=== PATIENT | female | born 1970 | race Caucasian/White ===

== ENCOUNTER 2016-12-08 02:16 | Emergency (ER) | payer MEDICARE, BC ==
[~2016-12-08] VITALS: Ht 165.1 cm; Wt 49.0 kg
[2016-12-08 02:19] VITALS: BP 124/76; PULSE 67; RESP 20; TEMP 98.3; O2SAT 100
[2016-12-08] MEDS ORDERED: FLUD.1 PO (02:35)
[2016-12-08] MEDS ORDERED: METO25TA3 PO (02:35)
[2016-12-08] MEDS ORDERED: ADDE20 PO (02:35)
[2016-12-08] MEDS ORDERED: SODIUM CHLOR 0.9% 1000 ML INJ 1,000 ML IV ONE (02:36)
--- NOTE | 2016-12-08 02:40 | PD ---
HPI Chief Complaint: syncope Time Seen by Provider: 02:19 Travel History International Travel<30 days: No Contact w/Intl Traveler<30days: No Traveled to known affect area: No History of Present Illness HPI The patient is a 46-year-old female who presents emergency Department after syncopal episode. The patient is currently staying at the [facility]. The patient states she was using the restroom earlier tonight when she had a syncopal episode. The patient states she struck the right aspect of her head on the ground, thinks she may have had a loss of consciousness. She currently complains of a headache. The patient does have a significant history of dysautonomia, had a positive tilt table test and was placed on midodrine, however, had a reaction and was changed to Florinef. The patient also had episodes of bradycardia and tachycardia, subsequently had a pacemaker placed, by a traumatic, and was placed on metoprolol. 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 The patient denies any palpitations or known arrhythmia earlier tonight, however, does complain of sharp left-sided chest pain. The patient denies any acute shortness of breath, nausea, vomiting, or diaphoresis. She does admit to drinking one alcoholic drink earlier tonight, denies intoxication. She denies any company neck pain, back pain, or extremity pain. PFSH Past Medical History Narrative Medical Dysautonomia Past Surgical History Narrative Surgical Pacemaker placement Social History Alcohol Use: Yes Tobacco Use: Yes Allergies-Medications (Allergen,Severity, Reaction): Coded Allergies: Niacin (Verified Allergy, Severe, Hives, 12/08/16) Midodrine (Verified Adverse Reaction, Unknown, 12/08/16) BUSINESS INSURANCE AGENT ADVISED NOT TO TAKE Reported Meds & Prescriptions Reported Meds & Active Scripts Active Reported Metoprolol Tartrate 25 Mg Tab 25 Mg PO DAILY Fludrocortisone (Fludrocortisone Acetate) 0.1 Mg Tab 0.1 Mg PO DAILY Adderall (Amphetamine-Dextroamphetamine) 20 Mg Tab 20 Mg PO DAILY Avoid late evening doses. Space doses at least 4 to 6 hours if more than once/day dosing. Review of Systems Except as stated in HPI: all other systems reviewed are Neg General / Constitutional: No: Fever HENT: No: Lightheadedness Cardiovascular: Positive: Tachycardia (history of tachycardia, recently had a Holter monitor), Syncope, No: Chest Pain or Discomfort, Irregular Rhythm Respiratory: No: Shortness of Breath Gastrointestinal: No: Nausea, Vomiting, Abdominal Pain Musculoskeletal: No: Weakness Neurologic: Positive: Syncope, No: Dizziness Physical Exam Narrative GENERAL: Awake, alert, pleasant 46-year-old female who appears her stated age and is in no acute respiratory distress. SKIN: Focused skin assessment warm/dry. HEAD: Ecchymosis noted over the right periorbital area and over the right maxilla. EYES: Pupils equal and round. 3 mm bilateral and reactive. EOMs are intact. ENT: No nasal bleeding or discharge. Mucous membranes pink and moist. NECK: Trachea midline. No JVD. No tenderness of the cervical vertebrae. CARDIOVASCULAR: Regular rate and rhythm. No murmur appreciated. Pacemaker in place left chest wall. RESPIRATORY: No accessory muscle use. Clear to auscultation. Breath sounds equal bilaterally. GASTROINTESTINAL: Abdomen soft, non-tender, nondistended. No rebound tenderness. Back: Mild scoliosis, no tenderness over the thoracic or lumbar vertebrae. MUSCULOSKELETAL: No obvious deformities. No clubbing. No cyanosis. No edema. NEUROLOGICAL: Awake and alert. No obvious cranial nerve deficits. Motor grossly within normal limits. Normal speech. Alert and oriented 4. Follows commands without difficulty. PSYCHIATRIC: Appropriate mood and affect; insight and judgment normal. Data Data Last Documented VS Vital Signs Date Time Temp Pulse Resp B/P Pulse Ox O2 Delivery O2 Flow Rate FiO2 12/08/16 03:24 69 17 129/76 68 17 131/77 72 17 120/80 12/08/16 02:19 98.3 100 Orders Electrocardiogram (12/08/16 02:36) Complete Blood Count With Diff (12/08/16 02:36) Comprehensive Metabolic Panel (12/08/16 02:36) Magnesium (Mg) (12/08/16 02:36) Ckmb (Isoenzyme) Profile (12/08/16 02:36) Troponin I (12/08/16 02:36) Chest, Single Ap (12/08/16 02:36) Ct Brain W/O Iv Contrast(Rout) (12/08/16 02:36) Ecg Monitoring (12/08/16 02:36) Iv Access Insert/Monitor (12/08/16 02:36) Oximetry (12/08/16 02:36) Sodium Chloride 0.9% Flush (Ns Flush) (12/08/16 02:45) Sodium Chlor 0.9% 1000 Ml Inj (Ns 1000 M (12/08/16 02:36) Orthostatic Vital Signs (12/08/16 02:36) Alcohol (Ethanol) (12/08/16 02:35) CKMB (12/08/16 02:35) CKMB% (12/08/16 02:35) Potassium Chloride (Kcl) (12/08/16 04:00) Labs Laboratory Tests Test 12/08/16 02:35 White Blood Count 6.3 TH/MM3 Red Blood Count 4.46 MIL/MM3 Hemoglobin 13.2 GM/DL Hematocrit 39.0 % Mean Corpuscular Volume 87.4 FL Mean Corpuscular Hemoglobin 29.6 PG Mean Corpuscular Hemoglobin 33.9 % Concent Red Cell Distribution Width 14.6 % Platelet Count 211 TH/MM3 Mean Platelet Volume 8.6 FL Neutrophils (%) (Auto) 69.6 % Lymphocytes (%) (Auto) 24.2 % Monocytes (%) (Auto) 5.1 % Eosinophils (%) (Auto) 0.7 % Basophils (%) (Auto) 0.4 % Neutrophils # (Auto) 4.4 TH/MM3 Lymphocytes # (Auto) 1.5 TH/MM3 Monocytes # (Auto) 0.3 TH/MM3 Eosinophils # (Auto) 0.0 TH/MM3 Basophils # (Auto) 0.0 TH/MM3 CBC Comment DIFF FINAL Differential Comment Sodium Level 145 MEQ/L Potassium Level 3.3 MEQ/L Chloride Level 105 MEQ/L Carbon Dioxide Level 32.6 MEQ/L Anion Gap 7 MEQ/L Blood Urea Nitrogen 15 MG/DL Creatinine 0.94 MG/DL Estimat Glomerular Filtration 64 ML/MIN Rate Random Glucose 93 MG/DL Calcium Level 9.0 MG/DL Magnesium Level 1.9 MG/DL Total Bilirubin 0.1 MG/DL Aspartate Amino Transf 20 U/L (AST/SGOT) Alanine Aminotransferase 21 U/L (ALT/SGPT) Alkaline Phosphatase 86 U/L Total Creatine Kinase 145 U/L Creatine Kinase MB 2.7 NG/ML Troponin I LESS THAN 0.02 NG/ML Total Protein 7.1 GM/DL Albumin 3.9 GM/DL Ethyl Alcohol Level 61 MG/DL MDM Medical Decision Making Medical Screen Exam Complete: Yes Emergency Medical Condition: Yes Medical Record Reviewed: Yes Interpretation(s) EKG reveals electronic atrial pacemaker with a rate of 68. Last Impressions Chest X-Ray 12/08/16 0236 Signed Impressions: Service Date/Time: Thursday, December 08, 2016 03:15 - CONCLUSION: No acute disease Driss Ritter MD Laboratory Tests Test 12/08/16 02:35 White Blood Count 6.3 TH/MM3 Red Blood Count 4.46 MIL/MM3 Hemoglobin 13.2 GM/DL Hematocrit 39.0 % Mean Corpuscular Volume 87.4 FL Mean Corpuscular Hemoglobin 29.6 PG Mean Corpuscular Hemoglobin 33.9 % Concent Red Cell Distribution Width 14.6 % Platelet Count 211 TH/MM3 Mean Platelet Volume 8.6 FL Neutrophils (%) (Auto) 69.6 % Lymphocytes (%) (Auto) 24.2 % Monocytes (%) (Auto) 5.1 % Eosinophils (%) (Auto) 0.7 % Basophils (%) (Auto) 0.4 % Neutrophils # (Auto) 4.4 TH/MM3 Lymphocytes # (Auto) 1.5 TH/MM3 Monocytes # (Auto) 0.3 TH/MM3 Eosinophils # (Auto) 0.0 TH/MM3 Basophils # (Auto) 0.0 TH/MM3 CBC Comment DIFF FINAL Differential Comment Sodium Level 145 MEQ/L Potassium Level 3.3 MEQ/L Chloride Level 105 MEQ/L Carbon Dioxide Level 32.6 MEQ/L Anion Gap 7 MEQ/L Blood Urea Nitrogen 15 MG/DL Creatinine 0.94 MG/DL Estimat Glomerular Filtration 64 ML/MIN Rate Random Glucose 93 MG/DL Calcium Level 9.0 MG/DL Magnesium Level 1.9 MG/DL Total Bilirubin 0.1 MG/DL Aspartate Amino Transf 20 U/L (AST/SGOT) Alanine Aminotransferase 21 U/L (ALT/SGPT) Alkaline Phosphatase 86 U/L Total Creatine Kinase 145 U/L Creatine Kinase MB 2.7 NG/ML Troponin I LESS THAN 0.02 NG/ML Total Protein 7.1 GM/DL Albumin 3.9 GM/DL Ethyl Alcohol Level 61 MG/DL CT of the head reveals normal examination Differential Diagnosis Differential diagnosis includes arrhythmia, orthostatic hypotension, dehydration , alcohol intoxication, electrolyte abnormality, syncope. Narrative Course IV was established, labs are drawn and sent, and the patient was placed on cardiac telemetry monitoring and continuous pulse oximetry monitoring. EKG was ordered and interpreted. [employer] was called to interrogate the pacemaker. The patient was administered 1 L of IV fluids. Chest x-ray was obtained. Chest x-rays negative. Electrolytes unremarkable except for potassium at 3.3, replaced orally. Alcohol level was only 61. [employer]ron[employer] revealed the patient had episodes of atrial tachycardia, SVTs, no evidence of ventricular arrhythmias. The pacemaker rep placed the rate from the setting of 62 DDD/70. The patient will be discharged, is advised to follow-up with her sterile supervisor. Return if symptoms worsen or progress. Diagnosis Primary Impression: Syncope Qualified Code: R55 - Syncope, unspecified syncope type Additional Impression: Dysautonomia Patient Instructions: General Instructions Additional Instructions: Please provide a patient a copy of her CT results, lab results, x-ray results, and a copy of her pacemaker evaluation at discharge. Follow-up with your sterile supervisor. Return if symptoms worsen or progress. Med/Other Pt SpecificInfo: No Change to Meds Disposition: 01 DISCHARGE HOME Condition: Stable Floyd Benitez MD December 08, 2016 02:40
[2016-12-08] MEDS ORDERED: SODIUM CHLORIDE 0.9% FLUSH 10 ML FLUSH IVF PRN (02:45)
[2016-12-08 02:58] LABS: AUTOMATED NEUTROPHIL # 4.4 TH/MM3 (1.8-7.7); BASOPHIL % 0.4 % (0.0-2.0); EOSINOPHIL % 0.7 % (0.0-4.0); HEMO FLAGS DIFF FINAL; LYMPH % 24.2 % (9.0-44.0); LYMPHOCYTE # 1.5 TH/MM3 (1.0-4.8); MEAN CELL VOLUME 87.4 FL (80.0-100.0); MEAN CORPUSCULAR HEMOGLOBIN 29.6 PG (27.0-34.0); MEAN CORPUSCULAR HGB CONC 33.9 % (32.0-36.0); MONO % 5.1 % (0.0-8.0); NEUT % 69.6 % (16.0-70.0); PLATELET COUNT 211 TH/MM3 (150-450); RED BLOOD COUNT 4.46 MIL/MM3 (4.00-5.30); RED CELL DISTRIBUTION WIDTH 14.6 % (11.6-17.2); WHITE BLOOD COUNT 6.3 TH/MM3 (4.0-11.0)
--- NOTE | 2016-12-08 03:19 | RADRPT ---
EXAM DATE/TIME: 12/08/2016 03:15 [facility] COMPARISON: No previous studies available for comparison. INDICATIONS : Palpitations. MEDICAL HISTORY : None. SURGICAL HISTORY : Pacemaker. ENCOUNTER: Initial ACUITY: 1 day PAIN SCORE: 0/10 LOCATION: Bilateral chest FINDINGS: Pacemaker device is noted with control pack over the left chest. Lungs are clear. No pleural effusion is evident. Cardiac contour is satisfactory. CONCLUSION: No acute disease Driss Ritter MD on December 08, 2016 at 3:16 Board Certified Radiologist. This report was verified electronically.
[2016-12-08 03:21] LABS: ALT (GPT) 21 U/L (10-53); ANION GAP 7 MEQ/L (5-15); AST (GOT) 20 U/L (15-37); BICARBONATE 32.6 MEQ/L (21.0-32.0); BLOOD UREA NITROGEN 15 MG/DL (7-18); CHLORIDE 105 MEQ/L (98-107); GLOMERULAR FILTRATION RATE 64 ML/MIN (>89); MAGNESIUM 1.9 MG/DL (1.5-2.5); POTASSIUM 3.3 MEQ/L (3.5-5.1); SODIUM (NA) 145 MEQ/L (136-145)
[2016-12-08 03:24] VITALS: BP_SYST 120; BP_SYST 129; BP_SYST 131; BP_DIAS 76; BP_DIAS 77; BP_DIAS 80; RESP 17
[2016-12-08 03:25] LABS: ALKALINE PHOSPHATASE 86 U/L (45-117); CREATINE KINASE 145 U/L (26-192); TOTAL BILIRUBIN ADULT 0.1 MG/DL (0.2-1.0)
[2016-12-08 03:37] LABS: CKMB 2.7 NG/ML (0.5-3.6)
[2016-12-08] MEDS ORDERED: POTASSIUM CHLORIDE 20 MEQ CONTROLLED RELEASE TAB PO ONE (04:00)
--- NOTE | 2016-12-08 04:48 | RADRPT ---
EXAM DATE/TIME: 12/08/2016 03:34 [facility] COMPARISON: No previous studies available for comparison. INDICATIONS : Dizziness; ETOH. RADIATION DOSE: 56.35 CTDIvol (mGy) MEDICAL HISTORY : Cardiovascular disease. Irritable bowel syndrome. SURGICAL HISTORY : Pacemaker. Appendectomy.Cholecystectomy., Tubal ligation, Tonsillectomy ENCOUNTER: Initial ACUITY: 1 day PAIN SCALE: 0/10 LOCATION: cranial TECHNIQUE: Multiple contiguous axial images were obtained of the head. Using automated exposure control and adj ustment of the mA and/or kV according to patient size, radiation dose was kept as low as reasonably a chievable to obtain optimal diagnostic quality images. FINDINGS: CEREBRUM: The ventricles are normal for age. No evidence of midline shift, mass lesion, hemorrhage or acute in farction. No extra-axial fluid collections are seen. POSTERIOR FOSSA: The cerebellum and brainstem are intact. The 4th ventricle is midline. The cerebellopontine angle i s unremarkable. EXTRACRANIAL: The visualized portion of the orbits is intact. SKULL: The calvaria is intact. No evidence of skull fracture. CONCLUSION: Normal examination. Driss Ritter MD on December 08, 2016 at 4:45 Board Certified Radiologist. This report was verified electronically.
[2016-12-08 05:04] VITALS: BP 115/79
--- NOTE | 2016-12-08 08:15 | EKG ---
Date Performed: 12/08/2016 Time Performed: 02:37:26 PTAGE: 46 years EKG: ELECTRONIC ATRIAL PACEMAKER SEPTAL MYOCARDIAL INFARCTION ABNORMAL ECG NO PREVIOUS TRACING DOCTOR: Abdifatah Sandoval Interpretating Date/Time 12/08/2016 08:13:06
== END 2016-12-08 05:17 | disposition home or self-care (01) ==
LOC: NEPC 02:16
DX: R55 Syncope and collapse (principal); G90.1 Familial dysautonomia [Riley-Day]; R51 Headache; Z72.0 Tobacco use; R94.31 Abnormal electrocardiogram [ECG] [EKG]
CPT/HCPCS: 70450; 71010; 80053; 80307; 82550; 82552; 83735; 84484; 85025; 93005; 96360; 99285; J7030